=== PATIENT | male | born 1950 | race Caucasian/White ===

== ENCOUNTER → 2017-02-21 | Outpatient (CLI) | payer OTHER ==
[~2017-02-21] MED LIST: ACET250T2 PO; ALBU0.63 NEB; AMLO10TA2 PO; BUDE10.2 IH; CLON0.5T3 PO; CLON1TAB3 PO; CRESTOR40 MG PO; FERROUS GLUCON325 M1 PO; GABA600T2 PO; HYDR-2758 PO; INSU100C4 SQ; INSU100V8 SQ; LISI-334 PO; METF10002 PO; MIRT30TA3 PO; NORT10CA PO; PANT40TA5 PO; POTA20PA21 PO; PROP40TA PO; SILD100T PO; THIA100T8 PO
--- NOTE | 2017-02-21 12:18 | RAD ---
DATE: 02/21/2017. EXAM: DIGITAL DIAGNOSTIC BILATERAL, ULTRASOUND BREAST BILATERAL. HISTORY: Right breast swelling and tenderness for one month. COMPARISON: None. This is interpreted as a baseline study. This study was interpreted with the benefit of Computerized Aided Detection (CAD). FINDINGS: The breast parenchyma is heterogeneously dense, which could reduce sensitivity of mammography. Breast parenchyma level C.. There is moderate gynecomastia on the right greater than left. Scattered round calcifications appear benign. There is no suspicious mass, microcalcification or architectural distortion. Sonography of both periareolar breast was performed. There is moderate gynecomastia on the right greater than left. This corresponds with the site of tenderness on the right. No focal mass is identified bilaterally. BI-RADS CATEGORY: 2 BENIGN FINDING(S). RECOMMENDED FOLLOW-UP: CLIN FOLLOW UP IMAGING CLINICALLY INDICATED. Recommend ongoing clinical follow-up of breast tenderness and bilateral moderate gynecomastia within the reassessment as indicated. Mammography is a sensitive method for finding small breast cancers, but it does not detect them all and is not a substitute for careful clinical examination. A negative mammogram does not negate a clinically suspicious finding and should not result in delay in biopsying a clinically suspicious abnormality. "Our facility is accredited by the [employer] Mammography Program."
== END | disposition home or self-care (01) ==
LOC: MAMMO 09:38
PROVIDERS: ATTEND Internal Medicine
DX: N62 Hypertrophy of breast (principal); N63.10 Unspecified lump in the right breast, unspecified quadrant; N64.4 Mastodynia; R92.1 Mammographic calcification found on diagnostic imaging of breast
CPT/HCPCS: 76641; G0204; 77066

== ENCOUNTER 2017-11-09 07:20 | Emergency (ER) | payer MEDICARE, OTHER ==
[~2017-11-09] VITALS: Ht 182.9 cm; Wt 104.8 kg
[~2017-11-09 07:20] MED LIST changes: +CLON0.5T11 PO; -CLON0.5T3 PO; -CLON1TAB3 PO; +CLON1TAB4 PO; -METF10002 PO; +METF10003 PO
--- NOTE | 2017-11-09 07:29 | PHYS DOC ---
Past History Past Medical History: COPD, Diabetes, Hypertension Past Surgical History: Other Smoking: Cigarettes Alcohol Use: Heavy Adult General Chief Complaint Chief Complaint: altered mental status HPI HPI Patient is a 67 year old male who presents with altered mental status. The patient was brought to the emergency department by EMS after family found the patient confused and agitated this morning. The patient was last known at mental baseline last night at approximately 1 AM before going to bed. Patient has history of chronic liver failure and has had history of hepatic encephalopathy. EMS notes that family stated patient has had similar symptoms in the past 1 requiring paracentesis and treatment of elevated ammonia levels. The patient is currently agitated and in a confused state, thus is a very poor historian. EMS was also told by family that the patient has had increasing distention to the abdomen and they are concerned the patient may be fluid overloaded. Review of Systems Review of Systems Unable to obtain, patient is agitated, confused, and not answering questions appropriately at this time. All other systems were reviewed and found to be within normal limits, except as documented in this note. Allergies Allergies Allergies Coded Allergies Type Severity Reaction Last Updated Verified Amoxicillin Allergy 04/10/13 Yes dipyridamole Allergy 04/10/13 Yes omeprazole Allergy 04/10/13 Yes trazodone Allergy 04/10/13 Yes Physical Exam Physical Exam Constitutional: Alert, agitated, confused. [] HENT: Normocephalic, atraumatic, bilateral external ears normal, oropharynx moist, no oral exudates, nose normal. [] Eyes: PERRLA, EOMI, scleral icterus present, no discharge. [] Neck: Normal range of motion, no tenderness, supple, no stridor. [] Cardiovascular:Heart rate regular rhythm, no murmur [] Lungs & Thorax: Bilateral breath sounds clear to auscultation [] Abdomen: Distended abdomen with positive fluid wave, no masses, no pulsatile masses. [] Skin: Warm, dry, no erythema, no rash. [] Back: No tenderness, no CVA tenderness. [] Extremities: No tenderness, no cyanosis, no clubbing, ROM intact, no edema. [] Neurologic: Alert, oriented to self only, agitated, normal motor function, normal sensory function, no focal deficits noted. [] Current Patient Data Vital Signs Vital Signs Date Time Temp Pulse Resp B/P (MAP) Pulse Ox O2 Delivery O2 Flow Rate FiO2 11/09/17 07:43 97.0 89 24 100 Room Air Lab Results Laboratory Tests Test 11/09/17 07:15 11/09/17 07:45 White Blood Count 8.1 x10^3/uL Red Blood Count 3.28 x10^6/uL Hemoglobin 9.3 g/dL Hematocrit 28.2 % Mean Corpuscular Volume 86 fL Mean Corpuscular Hemoglobin 28 pg Mean Corpuscular Hemoglobin Concent 33 g/dL Red Cell Distribution Width 18.7 % Platelet Count 216 x10^3/uL Neutrophils (%) (Auto) 83 % Lymphocytes (%) (Auto) 10 % Monocytes (%) (Auto) 6 % Eosinophils (%) (Auto) 1 % Basophils (%) (Auto) 1 % Neutrophils # (Auto) 6.7 x10^3uL Lymphocytes # (Auto) 0.8 x10^3/uL Monocytes # (Auto) 0.5 x10^3/uL Eosinophils # (Auto) 0.1 x10^3/uL Basophils # (Auto) 0.1 x10^3/uL Sodium Level 143 mmol/L Potassium Level 4.1 mmol/L Chloride Level 109 mmol/L Carbon Dioxide Level 19 mmol/L Anion Gap 15 Blood Urea Nitrogen 72 mg/dL Creatinine 2.4 mg/dL Estimated GFR (Cockcroft-Gault) 27.1 Glucose Level 164 mg/dL Lactic Acid Level 1.9 mmol/L Calcium Level 8.5 mg/dL Magnesium Level 2.5 mg/dL Total Bilirubin 0.7 mg/dL Direct Bilirubin 0.3 mg/dL Aspartate Amino Transf (AST/SGOT) 57 U/L Alanine Aminotransferase (ALT/SGPT) 21 U/L Alkaline Phosphatase 231 U/L Ammonia 197 mcmol/L Creatine Kinase 171 U/L Creatine Kinase MB (Mass) 11.6 ng/mL Creatine Kinase MB Relative Index 6.8 % Troponin I Quantitative < 0.017 ng/mL Total Protein 7.1 g/dL Albumin 2.8 g/dL Blood Gas pH 7.49 Blood Gas PCO2 26 mmHg Blood Gas PO2 123 mmHg Blood Gas HCO3 20 mmol/L Arterial Bld O2 Saturation (Calc) 99 % FiO2 21 % Current Medications Medications (Trade) Dose Ordered Sig/Ludy Route PRN Reason Start Time Stop Time Status Last Admin Dose Admin Haloperidol Lactate (Haldol) 5 mg 1X ONCE IM 11/09/17 07:30 11/09/17 07:30 DC Haloperidol Lactate (Haldol) 5 mg 1X ONCE IVP 11/09/17 07:30 11/09/17 07:35 DC 11/09/17 07:55 Haloperidol Lactate (Haldol) 2 mg 1X ONCE IVP 11/09/17 08:00 11/09/17 08:03 DC 11/09/17 07:59 EKG EKG Rhythm strip interpretation by me: Heart rate 88, normal sinus rhythm, no ectopy [] Radiology/Procedures Radiology/Procedures [address] [address] IMAGING REPORT Signed PATIENT: JOEY HOWELL ACCOUNT: [id number] : 1950 LOCATION: ER AGE: 67 SEX: M EXAM STATUS: REG ER ORD. PHYSICIAN: TAMELA MARCH MD REASON: altered mental status PROCEDURE: CT HEAD WO CONTRAST PQRS Compliance Statement: One or more of the following individualized dose reduction techniques were utilized for this examination: 1. Automated exposure control 2. Adjustment of the mA and/or kV according to patient size 3. Use of iterative reconstruction technique CT HEAD WITHOUT CONTRAST History: altered mental status Comparison: None. Procedure: Axial images are obtained of the head from the skull base through the vertex without IV contrast. Findings: Technologist notes there were 3 people attempting to keep the patient still. There is severe motion artifact and the images are essentially nondiagnostic. There is probably generalized cerebral atrophy. There is no obvious midline shift. There is no large intracranial hemorrhage. A small hemorrhage could be obscured. Basilar cisterns do not appear effaced. Cannot comment on the integrity of the calvarium. No complete opacification of the paranasal sinuses is seen. Mastoid air cells are aerated. IMPRESSION: Essentially nondiagnostic study. Please see above discussion. Electronically signed by: Gurinder Mcgee MD (11/09/2017 8:36 AM) [id number] DICTATED AND SIGNED BY: GURINDER MCGEE MD DATE: 11/09/17 0830 CC: TAMELA MARCH MD; [facility] ~ [address] [id number] IMAGING REPORT Signed PATIENT: JOEY HOWELL ACCOUNT: [id number] : 1950 LOCATION: ER AGE: 67 SEX: M EXAM STATUS: REG ER ORD. PHYSICIAN: TAMELA MARCH MD REASON: altered mental status PROCEDURE: PORTABLE CHEST 1V Chest radiograph 11/09/2017 7:51 AM INDICATION: Altered mental status COMPARISON: April 12, 2013 TECHNIQUE: Portable upright frontal view of the chest is provided. FINDINGS: The cardiomediastinal silhouette is within normal limits. Neck soft tissues obscure evaluation of the right lung apex. Nodular density in the right upper lobe is favored to represent degenerative changes of the anterior margin of the first rib. Bandlike densities within the left lower lobe favor subsegmental atelectasis versus scarring. There may be a trace left pleural effusion. No significant pulmonary vascular congestion. Bibasilar subsegmental atelectasis is identified. No definite pneumothorax. IMPRESSION: Limited evaluation due to patient positioning. Bibasilar subsegmental atelectasis with more linear bandlike density in the left lower lobe suggestive of atelectasis versus scarring. Electronically signed by: Xiang Ang MD (11/09/2017 8:33 AM) [id number] DICTATED AND SIGNED BY: XIANG ANG MD DATE: 11/09/17 0832 CC: TAMELA MARCH MD; [facility] ~ [] Course & Med Decision Making Course & Med Decision Making Pertinent Labs and Imaging studies reviewed. (See chart for details) Due to continued agitated state, the patient was dosed with a total of 7 mg of IV Haldol. Lab work and imaging was able to be obtained and showed that the patient is currently suffering from hepatic encephalopathy with an elevated ammonia level of 197. The patient also shows evidence of ascites on examination. The patient will require treatment with GI consultation as well as possible ultrasound-guided paracentesis by interventional radiology. The services are not available at this facility, thus I contacted the hospitalist at [facility]. I spoke with Dr. Tolbert who accepted care of patient for transfer. Shortly after acceptance however, the washhouse worker contacted the emergency department and stated they would be unable to accept the patient due to lack of available beds. An attempt was made to transfer patient to the [facility] as he had an appointment for paracentesis to be done today, however they were unable to accept him due to lack of bed availability. The patient's stated that the patient typically receives care at [facility] and stated she would like the patient transferred there. I contacted the transfer center and patient transfer was accepted by Dr. Derrick Mcwilliams. Patient will be transferred by ground ambulance to [facility].[] Dragon Disclaimer Dragon Disclaimer This electronic medical record was generated, in whole or in part, using a voice recognition dictation system. Departure Departure: Impression: Primary Impression: Hepatic encephalopathy Additional Impression: Acute on chronic renal failure Disposition: XF [facility]-TRM HOSP Condition: STABLE Referrals: [facility] (PCP) Problem Qualifiers Additional Impression: Acute on chronic renal failure Acute renal failure type: unspecified Chronic kidney disease stage: unspecified stage Qualified Codes: N17.9 - Acute kidney failure, unspecified; N18.9 - Chronic kidney disease, unspecified TAMELA MARCH MD Nov 09, 2017 07:29
[2017-11-09] MEDS ORDERED: HALOPERIDOL LACT 5 MG/ML VIAL. IM ONE (07:30)
[2017-11-09] MEDS ORDERED: HALOPERIDOL LACT 5 MG/ML VIAL. IVP ONE ×2 (07:30→08:00)
[2017-11-09 07:40] LABS: BASO # 0.1 x10^3/uL (0.0-0.2); BASO % 1 % (0-3); EOS # 0.1 x10^3/uL (0.0-0.7); EOS % 1 % (0-3); HEMATOCRIT 28.2 % (39.0-53.0); HEMOGLOBIN 9.3 g/dL (13.0-17.5); LYMPH # 0.8 x10^3/uL (1.0-4.8); LYMPH % 10 % (24-48); MEAN CORPUSCULAR HEMOGLOBIN 28 pg (25-35); MEAN CORPUSCULAR HGB CONC 33 g/dL (31-37); MEAN CORPUSCULAR VOLUME 86 fL (79-100); MONO # 0.5 x10^3/uL (0.0-1.1); MONO % 6 % (0-9); NEUT # 6.7 x10^3uL (1.8-7.7); NEUT % 83 % (31-73); PLATELET COUNT 216 x10^3/uL (140-400); RED BLOOD COUNT 3.28 x10^6/uL (4.30-5.70); RED CELL DISTRIBUTION WIDTH 18.7 % (11.5-14.5); WHITE BLOOD COUNT 8.1 x10^3/uL (4.0-11.0)
[2017-11-09 08:07] LABS: BGAS PH 7.49 (7.35-7.46)
[2017-11-09 08:10] LABS: ALBUMIN 2.8 g/dL (3.4-5.0); CALCIUM 8.5 mg/dL (8.5-10.1); CREATININE 2.4 mg/dL (0.7-1.3); DIRECT BILIRUBIN 0.3 mg/dL (0.0-0.2); GFR 27.1; MAGNESIUM 2.5 mg/dL (1.8-2.4); POTASSIUM 4.1 mmol/L (3.5-5.1); TOTAL BILIRUBIN 0.7 mg/dL (0.2-1.0); TOTAL PROTEIN 7.1 g/dL (6.4-8.2)
--- NOTE | 2017-11-09 08:37 | RAD ---
Chest radiograph 11/09/2017 7:51 AM INDICATION: Altered mental status COMPARISON: April 12, 2013 TECHNIQUE: Portable upright frontal view of the chest is provided. FINDINGS: The cardiomediastinal silhouette is within normal limits. Neck soft tissues obscure evaluation of the right lung apex. Nodular density in the right upper lobe is favored to represent degenerative changes of the anterior margin of the first rib. Bandlike densities within the left lower lobe favor subsegmental atelectasis versus scarring. There may be a trace left pleural effusion. No significant pulmonary vascular congestion. Bibasilar subsegmental atelectasis is identified. No definite pneumothorax. IMPRESSION: Limited evaluation due to patient positioning. Bibasilar subsegmental atelectasis with more linear bandlike density in the left lower lobe suggestive of atelectasis versus scarring. Electronically signed by: Sarai Cruz MD (11/09/2017 8:33 AM) [id number]
--- NOTE | 2017-11-09 08:39 | RAD ---
PQRS Compliance Statement: One or more of the following individualized dose reduction techniques were utilized for this examination: 1. Automated exposure control 2. Adjustment of the mA and/or kV according to patient size 3. Use of iterative reconstruction technique CT HEAD WITHOUT CONTRAST History: altered mental status Comparison: None. Procedure: Axial images are obtained of the head from the skull base through the vertex without IV contrast. Findings: Technologist notes there were 3 people attempting to keep the patient still. There is severe motion artifact and the images are essentially nondiagnostic. There is probably generalized cerebral atrophy. There is no obvious midline shift. There is no large intracranial hemorrhage. A small hemorrhage could be obscured. Basilar cisterns do not appear effaced. Cannot comment on the integrity of the calvarium. No complete opacification of the paranasal sinuses is seen. Mastoid air cells are aerated. IMPRESSION: Essentially nondiagnostic study. Please see above discussion. Electronically signed by: Gurinder Mcgee MD (11/09/2017 8:36 AM) [id number]
[2017-11-09] MEDS ORDERED: LACTULOSE 20 GM/30 ML SOLUTION. ONE (09:57)
[2017-11-09] MEDS ORDERED: LACTULOSE 20 GM/30 ML SOLUTION. PO ONE (10:30)
[2017-11-09 11:07] VITALS: BP 152/77
== END 2017-11-09 11:10 | disposition short-term general hospital (02) ==
LOC: ER 07:20
DX: K72.90 Hepatic failure, unspecified without coma (principal); E11.22 Type 2 diabetes mellitus with diabetic chronic kidney disease; I12.9 Hypertensive chronic kidney disease with stage 1 through stage 4 chronic kidney disease, or unspecified chronic kidney disease; N18.9 Chronic kidney disease, unspecified; N17.9 Acute kidney failure, unspecified; F17.210 Nicotine dependence, cigarettes, uncomplicated; F10.20 Alcohol dependence, uncomplicated; Z88.1 Allergy status to other antibiotic agents; Z88.8 Allergy status to other drugs, medicaments and biological substances; Y90.9 Presence of alcohol in blood, level not specified
CPT/HCPCS: 36415; 70450; 71045; 80048; 80076; 82140; 82553; 82803; 83605; 83735; 84484; 85025; 85610; 85730; 87040; 87205; 96374; 99285; J1630